=== PATIENT | female | born 1980 ===

== ENCOUNTER → 2019-08-23 15:29 | Outpatient (CLI) | payer OTHER, SELFPAY ==
[2019-08-23 18:25] LABS: Coronavirus 19 IgG Antibody Negative (Negative); Coronavirus 19 IgM Antibody Negative (Negative)
== END ==
PROVIDERS: Visit Provider Pediatrics
DX: Z03.818 Encounter for observation for suspected exposure to other biological agents ruled out (principal)
CPT/HCPCS: 36415; 86328